=== PATIENT | female | born 1995 | race Caucasian/White ===

== ENCOUNTER 2023-04-13 21:51 | Emergency (ER) | payer OTHER ==
[~2023-04-13] VITALS: Ht 165.1 cm; Wt 72.6 kg
[2023-04-13 22:15] VITALS: BP_SYST 113; PULSE 110; RESP 19; TEMP 97.9; O2SAT 96
[2023-04-13 23:56] VITALS: BP_SYST 110; PULSE 108; RESP 18; TEMP 97.7; O2SAT 98
== END 2023-04-13 23:56 | disposition home or self-care (01) ==
LOC: SED 21:51
DX: S00.03XA Contusion of scalp, initial encounter (principal); Z79.899 Other long term (current) drug therapy; W22.09XA Striking against other stationary object, initial encounter; Y93.89 Activity, other specified; Y92.89 Other specified places as the place of occurrence of the external cause; Y99.8 Other external cause status
CPT/HCPCS: 70450-TC; 76376; 81025; 99284